=== PATIENT | female | born 1985 | race Caucasian/White ===

== ENCOUNTER 2017-01-17 01:56 | Inpatient (IN) | payer OTHER ==
[~2017-01-17] VITALS: Ht 172.7 cm; Wt 77.7 kg
[2017-01-17 01:45] VITALS: BP 147/79
[2017-01-17] MEDS ORDERED: D5%-LACTATED RINGERS 1,000 ML IV SCH (02:17)
[2017-01-17] MEDS ORDERED: OXYTOCIN 30U/ 0.9% NaCL 500ML 500 ML IV ONE (02:17)
[2017-01-17] MEDS ORDERED: ONDANSETRON 2MG/ML, 2ML IVPush PRN (02:30)
[2017-01-17] MEDS ORDERED: FENTANYL PF 100 MCG/2ML IVPush PRN (02:30)
[2017-01-17] MEDS ORDERED: TERBUTALINE 1 MG/ML, 1ML IVPush PRN (02:30)
[2017-01-17] MEDS ORDERED: CALCIUM CARBONATE 500 MG TAB.CHEW PO PRN ×2 (02:30→21:00)
[2017-01-17] MEDS ORDERED: FENTANYL PF 100 MCG/2ML IV PRN (02:30)
[2017-01-17] MEDS ORDERED: OXYTOCIN 30U/ 0.9% NaCL 500ML 500 ML ONE ×2 (03:11→08:27)
[2017-01-17] MEDS ORDERED: NEWBORN KIT ONE (03:11)
[2017-01-17] MEDS ORDERED: LIDOCAINE 1%, 20ML ONE ×2 (03:11→08:27)
[2017-01-17] MEDS ORDERED: MISOPROSTOL 200 MCG TABLET ONE ×2 (03:11→08:27)
[2017-01-17] MEDS: LACTATED RINGERS 1,000 ML IV SCH ×3 (07:47→18:59)
[2017-01-17] MEDS ORDERED: OXYTOCIN 30U/ 0.9% NaCL 500ML 500 ML IV PRN (08:37)
[2017-01-17] MEDS ORDERED: BUPIVACAINE/PF 0.25% ONE (08:53)
[2017-01-17] MEDS ORDERED: LIDOCAINE/PF 1.5%-EPI 1:200K, 30ML ONE ×2 (08:53→08:57)
[2017-01-17] MEDS ORDERED: FENTANYL/BUPIV./NS/PF 250 ML EPIDCONT ONE (08:53)
[2017-01-17] MEDS ORDERED: BUPIVACAINE 0.25% ONE (08:57)
[2017-01-17] MEDS ORDERED: FENTANYL/BUPIV./NS/PF 250 ML EPIDCONT SCH (11:58)
[2017-01-17] MEDS ORDERED: LACTATED RINGERS 1,000 ML IV SCH (11:58)
[2017-01-17] MEDS ORDERED: LACTATED RINGERS 1,000 ML IVBOLUS PRN (12:00)
[2017-01-17 19:23] VITALS: BP 120/60
[2017-01-17] MEDS: OXYTOCIN 30U/ 0.9% NaCL 500ML 500 ML IV SCH (20:34)
[2017-01-17] MEDS ORDERED: MAGNESIUM HYDROXIDE 8%, 30ML UDC PO PRN (21:00)
[2017-01-17] MEDS ORDERED: ACETAMINOPHEN 325 MG TABLET PO PRN ×2 (21:00)
[2017-01-17] MEDS ORDERED: RHOGAM FROM BLOOD BANK 1 NOTE EA IM/IV ONE (21:00)
[2017-01-17] MEDS ORDERED: MEASLES,MUMPS&RUBELLA VACC/PF 0.5 ML SQ PRN (21:00)
[2017-01-17] MEDS ORDERED: DIPH,PERTUSS(ACELL),TET VAC/PF NC IM-VACC PRN (21:00)
[2017-01-17] MEDS ORDERED: ONDANSETRON 2MG/ML, 2ML IV PRN (21:00)
[2017-01-17] MEDS ORDERED: MISOPROSTOL 200 MCG TABLET PR PRN (21:00)
[2017-01-17] MEDS ORDERED: OXYcodone/APAP 5/325MG TABLET PO PRN ×2 (21:00)
[2017-01-17 23:15] VITALS: BP 116/72
[2017-01-17] MEDS: IBUPROFEN 600 MG TABLET PO PRN (23:32)
[2017-01-17] MEDS: DOCUSATE 100 MG CAPSULE PO PRN (23:32)
[2017-01-18 03:30] VITALS: BP 120/60
[2017-01-18] MEDS: OXYTOCIN 30U/ 0.9% NaCL 500ML 500 ML IV SCH ×2 (06:34→16:34)
[2017-01-18 07:45] VITALS: BP 112/72
[2017-01-18] MEDS: IBUPROFEN 600 MG TABLET PO PRN (08:34)
[2017-01-18] MEDS: DOCUSATE 100 MG CAPSULE PO PRN (08:34)
[2017-01-18] MEDS ORDERED: PRENATAL VIT/IRON/FA 1 EACH TABLET PO SCH (09:00)
[2017-01-18 12:10] VITALS: BP 116/73
[2017-01-18] MEDS ORDERED: OXYC-302 PO (14:40)
[2017-01-18] MEDS ORDERED: IBUP-1222 PO (14:42)
[2017-01-18 16:00] VITALS: BP 113/76
[2017-01-18 19:47] VITALS: BP 133/86
== END 2017-01-18 21:15 | disposition home or self-care (01) | DRG 775 ==
LOC: LDOP 01:56 → LDIP 02:43 → 2NW 23:00
PROVIDERS: ADMIT Obstetrics & Gynecology; ATTEND Obstetrics & Gynecology
PROC: 0HQ9XZZ Repair Perineum Skin, External Approach (ICD-10-PCS; principal; 2017-01-17)
PROC: 10E0XZZ Delivery of Products of Conception, External Approach (ICD-10-PCS; 2017-01-17)
PROC: 0UQMXZZ Repair Vulva, External Approach (ICD-10-PCS; 2017-01-17)
PROC: 00HU33Z Insertion of Infusion Device into Spinal Canal, Percutaneous Approach (ICD-10-PCS; 2017-01-17)
PROC: 3E0R3CZ (ICD-10-PCS; 2017-01-17)
DX: O70.0 First degree perineal laceration during delivery (principal); Z37.0 Single live birth; Z3A.39 39 weeks gestation of pregnancy
CPT/HCPCS: 36415; 85025; 86850; 86900; J3490; J2590; J3010; J7120; J7121